=== PATIENT | male | born 1985 | race Caucasian/White ===

== ENCOUNTER 2022-07-22 16:20 | Emergency (ER) | payer MEDICAID ==
[~2022-07-22] VITALS: Ht 177.8 cm; Wt 106.8 kg
[2022-07-22 16:53] LABS: CLARITY,URINE CLEAR (Clear); COLOR,URINE YELLOW (Yellow); GLUCOSE, URINE NEGATIVE (Neg); KETONES,URINE NEGATIVE (Neg); LEUKOCYTE ESTERASE ,URINE NEGATIVE (Neg); NITRITES, URINE NEGATIVE (Neg); OCCULT BLOOD,URINE NEGATIVE (Neg); PROTEIN,URINE NEGATIVE (Neg); UROBILINOGEN,URINE 0.2 E.U/dL (0.2-1.0)
[2022-07-22 16:55] LABS: UA COLLECTION TYPE CLN CATCH MIDSTREAM
[2022-07-22 17:27] LABS: BASOPHILS # (AUTO) 0.1 X10'3 (0-0.2); EOSINOPHILS # (AUTO) 0.2 X10'3 (0-0.9); EOSINOPHILS % (AUTO) 3.6 % (0-6); HEMATOCRIT 49.5 % (42.0-52.0); HEMOGLOBIN 16.9 g/dl (14.0-17.9); LYMPHOCYTES # (AUTO) 1.7 X10'3 (1.1-4.8); LYMPHOCYTES % (AUTO) 27.4 % (21-51); MEAN CORPUSCULAR HEMOGLOBIN 31.9 PG (27.0-31.0); MEAN CORPUSCULAR HGB CONC 34.1 g/dL (33.0-36.5); MEAN CORPUSCULAR VOLUME 93.6 FL (78-98); MEAN PLATELET VOLUME 7.5 FL (7.4-10.4); MONOCYTES # (AUTO) 0.6 X10'3 (0-0.9); MONOCYTES % (AUTO) 9.2 % (2-12); NEUTROPHILS # (AUTO) 3.6 X10'3 (1.8-7.7); NEUTROPHILS % (AUTO) 58.8 % (42-75); PLATELET COUNT 154 X10'3 (140-440); RED BLOOD COUNT 5.29 X10'6 (4.70-6.10); RED CELL DISTRIBUTION WIDTH 13.2 % (11.5-14.5); WHITE BLOOD COUNT 6.1 X10'3 (4.5-11.0)
[2022-07-22 17:31] LABS: ALANINE AMINOTRANSFERASE 112 U/L (12-78); ALBUMIN 3.9 G/DL (3.4-5.0); ALKALINE PHOSPHATASE 96 IU/L (46-116); ANION GAP 9 (8-16); ASPARTATE AMINO TRANSFERASE 37 U/L (10-37); BILIRUBIN,TOTAL 0.4 MG/DL (0.1-1.0); BLOOD UREA NITROGEN 14 MG/DL (7-18); BUN/CREATININE RATIO 15.4 (10.0-20.0); CHLORIDE 104 MMOL/L (99-107); CREATININE 0.91 MG/DL (0.60-1.10); GLUCOSE 103 MG/DL (70-104); LIPASE 57 U/L (73-393); POTASSIUM 3.8 MMOL/L (3.5-5.1); SODIUM 137 MMOL/L (135-145); TOTAL CARBON DIOXIDE 24.1 MMOL/L (24-32); TOTAL PROTEIN 7.8 G/DL (6.4-8.2); eGFR > 90 ML/MIN
[2022-07-22] MEDS ORDERED: normal saline 1000ML IV soln IVB ONE (18:40)
[2022-07-22] MEDS ORDERED: ondansetron/PF 4mg/2ml inj IV ONE (18:40)
[2022-07-22] MEDS: morphine 4 MG/ML inj SYRINge IV PRN ×2 (19:22→22:23)
[2022-07-22 19:48] VITALS: BP 123/82
[2022-07-22] MEDS ORDERED: HYDR-3965 PO (21:13)
--- NOTE | 2022-07-22 22:24 | NUR ---
iv dc'd pt being discharged dressing applied
== END 2022-07-22 22:25 | disposition home or self-care (01) ==
LOC: ER 16:24
DX: R10.31 Right lower quadrant pain (principal); R11.10 Vomiting, unspecified; Z79.899 Other long term (current) drug therapy
CPT/HCPCS: 36415; 74176; 80053; 81003; 83690; 85025; 96361; 96374; 99285; J2270; J2405; J7030

== ENCOUNTER 2024-09-07 08:57 | Day surgery (SDC) | payer MEDICAID ==
[~2024-09-07] VITALS: Ht 177.8 cm; Wt 101.3 kg
[2024-09-07] VITALS (9 sets, daily range): BP systolic 108–130; BP diastolic 72–94; PULSE 64–83; RESP 16; TEMP 98.2; O2SAT 93–97
--- NOTE | 2024-09-07 09:25 | ELECTROCARDIOGRAPH REPORT ---
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 LONNIE Gottlieb Measurements Intervals [employer] Rate: 68 P: 32 NC: 145 QRS: 18 QRSD: 106 T: 28 QT: 409 QTc: 436 Interpretive Statements Sinus rhythm Abnormal R-wave progression, early transition Baseline wander in lead(s) V5 Electronically Signed On 09-07-2024 18:19:[address] LONNIE Gottlieb Please click the below link to view image of tracing.
[2024-09-07 09:44] LABS: RED CELL DISTRIBUTION WIDTH 13.6 % (11.5-14.5)
[2024-09-07 09:46] LABS: CREATININE 0.89 MG/DL (0.60-1.10); MEAN PLATELET VOLUME 8.1 FL (7.4-10.4); TOTAL CARBON DIOXIDE 25.8 MMOL/L (24-32); eCRCL 114 ML/MIN; eGFR > 90 ML/MIN
[2024-09-07 09:48] LABS: INR 1.0 INR
[2024-09-07] MEDS ORDERED: VITA-288 PO (09:49)
[2024-09-07] MEDS ORDERED: ALPR0.5T8 PO (09:49)
[2024-09-07] MEDS ORDERED: ASCO500C17 PO (09:49)
[2024-09-07] MEDS ORDERED: METO-395 PO (09:49)
[2024-09-07] MEDS ORDERED: VITC500T PO (09:51)
[2024-09-07] MEDS: sodium bicarbonate 1meq/ml syr 150 ML in dextrose 5%-water 1,000 ML IV ONE (10:04)
[2024-09-07] MEDS ORDERED: LIDOcaine 1% (10mg/ml) 2ml vial ONE (11:19)
[2024-09-07] MEDS ORDERED: verapamil 2.5 mg/ml inj IV ONE (11:19)
[2024-09-07] MEDS ORDERED: fentaNYL/PF 50MCG/1 ML 2ML syringe ONE (11:19)
[2024-09-07] MEDS ORDERED: iohexol 350 MG/ML 50ML vial IV ONE (11:20)
[2024-09-07] MEDS ORDERED: heparin 1,000unit/ml 10ml vial 10 ML ONE (11:20)
[2024-09-07] MEDS ORDERED: midazolam 1 mg/ML 2ml injection ONE ×4 (11:20→12:10)
[2024-09-07] MEDS ORDERED: nitroGLYCERIN 500mcg/5mL D5W 5 ML IV ONE (11:21)
[2024-09-07] MEDS ORDERED: normal saline 1000ml 1,000 ML IV SCH (13:05)
[2024-09-07] MEDS ORDERED: ondansetron/PF 4mg/2ml inj IV PRN (13:05)
[2024-09-07] MEDS ORDERED: HYDROcodone/acetaminophen 10/325mg tab PO PRN (13:05)
[2024-09-07] MEDS ORDERED: HYDROcodone/acetaminophen 5mg/325mg tablet PO PRN (13:05)
--- NOTE | 2024-09-07 14:00 | CARDIOLOGY REPORT ---
DATE OF SERVICE: 09/07/2024 DICTATING PHYSICIAN: SVETLANA QUINONES DO CARDIAC CATHETERIZATION REPORT REFERRING PHYSICIAN: Svetlana Quinones DO CLINICAL HISTORY: This 39-year-old man has had recurring episodes of syncope and vague chest pain. A sestamibi imaging study did not demonstrate a perfusion defect; however, he continues to have chest pain suggestive of angina pectoris. For that reason, a cardiac catheterization was ordered. PROCEDURES PERFORMED: * Left heart catheterization. * Left ventriculography. * Selective coronary arteriography. * 30 minutes conscious sedation supervision. DESCRIPTION OF PROCEDURE: The patient was sedated with fentanyl and Versed. He was then prepared and draped in the usual manner. The right radial area was infiltrated with 1% lidocaine. Using a micropuncture set and a Seldinger technique, a 6-Guamanian sheath was placed in the radial artery. 200 mcg of nitroglycerin and 2.5 mg of verapamil were directly injected into the radial artery. 5000 units of heparin were given in a peripheral IV. Left heart catheterization and left ventriculography were performed using a 6-Guamanian pigtail catheter. Coronary arteriography was performed using a 6-Guamanian Kimny catheter for the right coronary artery and a 5-Guamanian Ultimate 2 catheter for the left coronary artery. The arterial sheath was removed and Vasc band was applied. RESULTS: HEMODYNAMIC DATA: The left ventricular end diastolic pressure was 9 mmHg. There was only a 2 mm gradient across the aortic valve. LEFT VENTRICULOGRAM: The left ventriculogram was technically satisfactory. The ejection fraction was at least 70%. CORONARY ARTERIOGRAPHY: The coronary arteriograms were technically satisfactory. The patient had a right dominant system. RIGHT CORONARY ARTERY: The right coronary mainstem vessel was large in size. There was a medium-sized posterior descending branch and a small to medium-sized posterolateral branch. There were no obstructive lesions in the right coronary artery. LEFT MAIN CORONARY ARTERY: The left main was a large unobstructed vessel bifurcating into left anterior descending and circumflex coronary arteries. LEFT ANTERIOR DESCENDING CORONARY ARTERY: The LAD was a large transapical vessel. There were 2 medium-sized diagonal branches, one taking its origin proximally and the other from the mid vessel. There were no obstructive lesions in the left anterior descending coronary artery. CIRCUMFLEX CORONARY ARTERY: The circumflex was a large mainstem vessel. There was a branch emanating from the very proximal part of the circumflex coronary that had the distribution of an intermediate artery. There were no obstructive lesions in this medium-sized vessel. Further downstream, there was a large obtuse marginal branch. There were 2 very small inferior obtuse marginals and there was a medium-sized posterolateral branch. There were no obstructive lesions in the circumflex coronary artery. CONCLUSIONS: * No evidence for obstructive coronary artery disease. * Left ventricular systolic function was normal. The ejection fraction was estimated at 70%. PLAN: Ongoing medical therapy. SVETLANA QUINONES DO TID: [id number] RECEIPT: [id number] GIORGI/EDEL cc: Dr. JOSUÉ CARMONA
== END 2024-09-07 15:30 | disposition home or self-care (01) ==
LOC: SSTAY O 08:57
PROVIDERS: ATTEND Internal Medicine Cardiovascular Disease
DX: R07.9 Chest pain, unspecified (principal); R94.31 Abnormal electrocardiogram [ECG] [EKG]; I10 Essential (primary) hypertension; E78.00 Pure hypercholesterolemia, unspecified; Z79.899 Other long term (current) drug therapy
CPT/HCPCS: 36415; 80048; 83735; 85025; 85610; 93005; 93458; 99152; 99153; J1171; J1644; J2003; J2250; J3010; J3490; J7030; J7070; Q9967; A6258; A6402; C1894